=== PATIENT | female | born 1930 | race Caucasian/White ===

== ENCOUNTER 2017-05-15 01:16 | Inpatient (IN) | payer MEDICARE ==
[2017-05-15] MEDS ORDERED: Aspirin 300 MG Suppository ONE (01:19)
[2017-05-15] MEDS ORDERED: Aggrastat 12.5 MG/250 ML 250 ML ONE (02:00)
[2017-05-15] MEDS ORDERED: Heparin 10,000 UNITS/1 ML VIAL ONE ×2 (02:00→02:20)
[2017-05-15] MEDS ORDERED: Nitroglycerin 100MG/250ML BOT 250 ML ONE (02:20)
[2017-05-15 02:30] LABS: INR-International Normal Ratio 1.1; PTT 33.1 SEC (22.9-36.1); Prothrombin Time 14.4 SEC (12.0-14.7)
[2017-05-15 02:41] LABS: ALT (SGPT) 130 U/L (8-55); AST (SGOT) 211 U/L (5-34); Alkaline Phosphatase 108 U/L (40-150); Anion Gap 26 mmol/L (10-20); BUN (Urea Nitrogen) 24 mg/dL (9.8-20.1); Bilirubin, Total 0.2 mg/dL (0.2-1.2); Calc. Creatinine Clearance 0 mL/min (70-130); Calcium 8.2 mg/dL (7.8-10.44); Carbon Dioxide 12 mmol/L (23-31); Chloride 107 mmol/L (98-107); Estimated GFR-MDRD 34; Globulin 2.8 g/dL (2.4-3.5); Glucose 389 mg/dL (83-110); Potassium 4.2 mmol/L (3.5-5.1); Protein, Total 5.8 g/dL (6.0-8.3); Sodium 141 mmol/L (136-145)
[2017-05-15 02:42] LABS: CKMB 3.4 ng/mL (0-6.6); Troponin I 0.052 ng/mL (< 0.028)
[2017-05-15] MEDS ORDERED: Lidocaine 1% (PF) 30 ML VIAL ONE (02:46)
[2017-05-15 03:06] LABS: Band 1 % (5-11); Eosinophils 3 % (0-10); Hemoglobin 12.9 g/dL (12.0-16.0); Lymphocytes 42 % (21-51); MDiff Complete? YES; Mean Corpuscular Hemoglobin 29.6 pg (27.0-31.0); Mean Corpuscular Volume 92.5 fl (81.0-99.0); Mean Platelet Volume 7.2 fL (7.4-10.4); Metamyelocyte 4 % (0-0); Monocytes 5 % (0-10); Neutrophil 45 % (42-75); PLT Morphology Comment Appears Adequate; Platelet Count 256 thou/uL (130-400); RBC Distribution Width 12.8 % (11.5-14.5); RBC Morphology Normal; Red Blood Cell (RBC) Count 4.34 mill/uL (4.20-5.40)
[2017-05-15] MEDS ORDERED: TICAGRELOR 90 MG TABLET PO SCH ×2 (03:45→06:00)
[2017-05-15 03:51] LABS: Actual Bicarbonate (HCO3a) 20.9 mEq/L (22-26); Base Excess (BEa) -4.8 mEq/L (0 (+/-) 2.5); CO2 Tension 41.1 mmHg (35.0-45.0); O2 Tension (PaO2) 108.2 mmHg (80.0-100.0); pH, Arterial 7.32 (7.35-7.45)
[2017-05-15 03:52] LABS: Calcium, Ionized 1.1 mmol/L (1.12-1.30); Hematocrit-ABG 34.2 % (36.0-47.0); Hemoglobin (Hb) 11.4 g/dL (12.0-16.0); Puncture Site LINE
[2017-05-15 03:53] LABS: ALV-art Gradient 548.425 (0-20)
[2017-05-15] MEDS ORDERED: Propofol 1,000 MG/100 ML VIAL IV ONE (04:00)
[2017-05-15] MEDS ORDERED: Fentanyl 100 MCG/2 ML VIAL SLOW IVP PRN (04:34)
[2017-05-15] MEDS ORDERED: Propofol 1,000 MG/100 ML VIAL IV PRN (04:35)
[2017-05-15] MEDS ORDERED: DISCONTINUE PREVIOUS NARCOTIC PAIN MEDICATIONS AND BENZODIAZEPINES FS SCH (04:35)
[2017-05-15] MEDS ORDERED: Dextrose 5% in Water 1,000 ML IV PRN (04:35)
[2017-05-15] MEDS ORDERED: Lorazepam 2 MG/ML VIAL SLOW IVP PRN (04:35)
[2017-05-15] MEDS ORDERED: Dextrose 50% Abboject 50 ML SYRINGE IVP PRN (04:35)
[2017-05-15] MEDS ORDERED: fentaNYL Citrate/PF 2,000 MCG in Sodium Chloride 0.9% 60 ML IV SCH (04:35)
[2017-05-15] MEDS ORDERED: Morphine 2 MG/ML SYRINGE SLOW IVP PRN (04:35)
--- NOTE | 2017-05-15 04:49 | HP ---
REASON FOR ADMISSION: Cardiac arrest out of hospital with acute myocardial infarction. HISTORY OF PRESENT ILLNESS: Ms. Beaver is an 87-year-old woman. The patient started having chest pa in tonight. She was brought to the outpatient emergency room and as she arrived, the patient lost co nsciousness or actually just before she arrived when she was still in the vehicle. The staff at the emergency room was able to get her out of the car. The patient did not have a pulse, was unresponsiv e. CPR was started. The patient did have further CPR done at the emergency room in the outpatient emergency room, [facility]. She did require 5 amps of epinephrine, from what I am told. Ultimately, we were able to get her blood pressure and pulse back. She also was intubated and was transported here. On arrival here the patient was unresponsive, but did have palpable pulses in both feet. Decision wa s made to go to the cardiac catheterization lab. PAST MEDICAL HISTORY: No previous cardiac history. No other history available. The patient was bro ught directly from the outpatient optical laboratory mechanic. No previous cardiac history is known. MEDICATIONS: Apparently some anti-inflammatory. ALLERGIES: Allergy to CODEINE. REVIEW OF SYSTEMS: Not obtainable. The patient is intubated on the ventilator. FAMILY HISTORY: Unknown. SOCIAL HISTORY: Unknown. PHYSICAL EXAMINATION: GENERAL: This is a critically ill-appearing patient not responding. VITAL SIGNS: Blood pressure, however, was 140 systolic and the pulse is in the 80s. HEENT: Eyes; sclerae nonicteric. Mouth with endotracheal tube in place. NECK: Neck veins are somewhat distended. LUNGS: Clear anteriorly and laterally. CARDIAC: Somewhat distant, I did not hear murmur, rub or gallop. ABDOMEN: Distended, nontender. EXTREMITIES: Warm and dry. The peripheral pulses were palpable at the dorsalis pedis pulses bilater ally. LABORATORY AND X-RAY FINDINGS: EKG showed acute anterior myocardial infarction. The decision was made to proceed to the cardiac catheterization lab for emergency intervention if ind icated. The patient did suffer an out of hospital cardiac arrest with a relatively significant amoun t of time for CPR, I was told 30 minutes, but I do not have documentation of that. The decision was made to take the patient to the catheterization lab on an emergency basis. ASSESSMENT: 1. Out of hospital cardiac arrest, initially pulseless electrical activity. 2. Acute anterior myocardial infarction. 3. Status post CPR. 4. Currently unresponsive. The patient was taken to cardiac catheterization lab. She had a proximally occluded left anterior de scending artery which was successfully opened, also had a 70% right coronary lesion. Ejection fracti on 20%. PLAN: 1. Aspirin and ticagrelor in the OG tube. 2. Currently she is on Tirofiban, antiplatelet intravenously. 3. The patient is not really stable yet to begin beta blockers and JACKLYN inhibitors. We will start th at when feasible. 4. Neurologic prognosis unknown at this time, discussed with the family. Prognosis is guarded. 5. The patient also apparently has diabetes, blood glucose is 389. We will use sliding scale charo young
[2017-05-15 05:24] LABS: Band 8 % (5-11); Hemoglobin 11.8 g/dL (12.0-16.0); Lymphocytes 4 % (21-51); MDiff Complete? YES; Mean Corpuscular HGB CONC 32.2 g/dL (32.0-36.0); Mean Corpuscular Hemoglobin 29.6 pg (27.0-31.0); Mean Corpuscular Volume 91.7 fl (81.0-99.0); Monocytes 9 % (0-10); Neutrophil 79 % (42-75); PLT Morphology Comment Appears Adequate; Platelet Count 299 thou/uL (130-400); RBC Distribution Width 12.5 % (11.5-14.5); RBC Morphology Normal; Red Blood Cell (RBC) Count 4.01 mill/uL (4.20-5.40); White Blood Cell (WBC) Count 20.2 thou/uL (4.8-10.8)
[2017-05-15] MEDS: Sodium Chloride 0.9% 1,000 ML IV SCH ×2 (06:29→20:24)
[2017-05-15] MEDS ORDERED: Prevnar 13-Val Conj/PF 0.5 ML SYRINGE IM ONE (07:00)
[2017-05-15] MEDS ORDERED: Aggrastat 12.5 MG/250 ML 250 ML IVPB SCH (07:45)
[2017-05-15 08:27] LABS: Actual Bicarbonate (HCO3a) 19.8 mEq/L (22-26); Base Excess (BEa) -4.3 mEq/L (0 (+/-) 2.5); CO2 Tension 33.3 mmHg (35.0-45.0); Hematocrit-ABG 35.1 % (36.0-47.0); O2 Tension (PaO2) 103.6 mmHg (80.0-100.0); pH, Arterial 7.39 (7.35-7.45)
[2017-05-15 08:28] LABS: Hemoglobin (Hb) 11.8 g/dL (12.0-16.0); Puncture Site ART LINE
[2017-05-15 08:29] LABS: ALV-art Gradient 211.275 (0-20)
--- NOTE | 2017-05-15 09:05 | RAD ---
PORTABLE CHEST: History: Chest pain. Comparison: None. FINDINGS: Endotracheal tube is present. The tip is at the level of the abdon and should be retracted slightly for better placement. NG tube is below the hemidiaphragm. Heart size is borderline. Increased perihil ar markings asymmetrically involve the right hilar region, still this is most likely on the basis of pulmonary edema and less likely an infiltrative process. IMPRESSION: 1. Endotracheal tube. The tip of the tube is at level of the abdon and should be retracted slightly for more optimal placement. 2. Increased asymmetric perihilar markings in the right perihilar region. I would still favor that th is represents an asymmetric edema pattern. POS: OFF
[2017-05-15 09:48] LABS: Hemoglobin 11.9 g/dL (12.0-16.0); Mean Corpuscular HGB CONC 32.2 g/dL (32.0-36.0); Mean Corpuscular Hemoglobin 29.4 pg (27.0-31.0); Mean Corpuscular Volume 91.4 fl (81.0-99.0); Platelet Count 322 thou/uL (130-400); RBC Distribution Width 12.5 % (11.5-14.5); Red Blood Cell (RBC) Count 4.05 mill/uL (4.20-5.40); White Blood Cell (WBC) Count 28.8 thou/uL (4.8-10.8)
--- NOTE | 2017-05-15 09:56 | PRG ---
DATE OF SERVICE: 05/15/2017 Ms. Beaver's blood pressure is 150/60, her pulse is in the 80s. However, the patient is not responsiv e currently, appears to have likely suffered a significant brain injury due to hypoxemia. The tropon in level was only 1.7 and hemodynamically she is doing well. Unfortunately, she probably has suffere d hypoxic brain injury related to her cardiac arrest. The patient had severe oozing and bleeding muc h of the night, but has finally settled down off of the [place]gr[place]. Prognosis is likely poor in this unfortunate patient. We will discuss with family.
[2017-05-15 10:13] LABS: Troponin I 5.354 ng/mL (< 0.028)
[2017-05-15] MEDS ORDERED: Carvedilol 3.125 MG TAB PO SCH ×2 (10:15→17:00)
[2017-05-15] MEDS ORDERED: Furosemide 20 MG/2 ML VIAL SLOW IVP SCH (10:15)
--- NOTE | 2017-05-15 10:30 | CON ---
DATE OF CONSULTATION: 05/15/2017 SERVICE: Pulmonary Medicine. REASON FOR CONSULTATION: Respiratory failure. HISTORY OF PRESENT ILLNESS: The patient is an 87-year-old white female. Apparently, she was in her usual state of health when she had onset of chest discomfort. She went obtunded for a period of over 2 minutes. Her airway was secured. She was brought to the emergency department. She underwent rou ghly 20-30 minutes of chest compressions and ultimately return of circulation was established. She w as brought to the lab engineer and an acute LAD lesion was identified. This clot was suctioned and a john nt was placed. Since then, she has been hemodynamically stable and requiring minimal oxygen support. Unfortunately, she remains encephalopathic. Otherwise, there has been no interval change to her co ndition. There were no significant events overnight after these things transpired. PAST MEDICAL HISTORY: Osteoarthritis. Otherwise, past medical history is unknown. PAST SURGICAL HISTORY: Unknown. FAMILY HISTORY: Unknown. SOCIAL HISTORY: Unknown. ALLERGIES: The patient is allergic to CODEINE listed in our medical record. MEDICATIONS: Unknown. REVIEW OF SYSTEMS: This cannot be obtained as the patient is currently obtunded. PHYSICAL EXAMINATION: VITAL SIGNS: Afebrile, pulse 111, blood pressure 149/67, respirations 23, saturation 96% on 27% FiO2 and a PEEP of 5. GENERAL: Patient is intubated. She is on no sedating medications, but remains encephalopathic. HEENT: Normocephalic, atraumatic. Sclerae are white, conjunctivae pink. Oral mucosa is moist and w ithout lesion. LUNGS: Decent air entry. Inspiratory and expiratory wheezing. Large airway wheezing and rhonchi ar e present. No crackles are appreciated. HEART: Tachycardic. Regular. ABDOMEN: Soft, nontender, nondistended. Bowel sounds are positive. MUSCULOSKELETAL: No cyanosis or clubbing. There is no pitting in the bilateral lower extremities. NEUROLOGIC: Grossly nonfocal. LABORATORY DATA: WBC 28.8, hemoglobin 11.9, and platelets 322,000. INR 1.1. A pH 7.39, pCO2 33, pO 2 103. Creatinine 1.48. Baseline unknown. Bicarbonate 12, anion gap 26. Basic metabolic profile o therwise unremarkable. AST and ALT are 211 and 130, respectively. Troponin is up trended to 1.7. G lucose 209. WENDY is negative. Rheumatoid factor is only positive in a 1:1 titer. IMAGING: Chest x-ray demonstrates endotracheal tube with tube at level of the abdon. Asymmetric pe rihilar markings are present. ASSESSMENT: 1. ST elevation myocardial infarction. 2. Acute hypoxic respiratory failure. 3. Pulseless electrical activity arrest for 30 minutes duration, status post return of spontaneous c irculation. 4. Anoxic brain injury, suspected. PLAN: We will support the patient over the next 48 hours. It is my fear that she suffered a severe anoxic brain injury from which I am not certain if she can recover. We will provide her with support on mechanical ventilation. We will add some nebulized medications and empiric antibiotics as she wa s down for protracted course. CRITICAL CARE TIME: 30 minutes.
[2017-05-15 10:35] LABS: Band 23 % (5-11); Lymphocytes 4 % (21-51); MDiff Complete? YES; Monocytes 2 % (0-10); Neutrophil 70 % (42-75); RBC Morphology Normal; Reactive Lymphocytes 1 % (0-10)
[2017-05-15] MEDS ORDERED: Enalaprilat Dihydrate 1.25 MG/ML VIAL SLOW IVP SCH (12:00)
[2017-05-15] MEDS ORDERED: Iopamidol 370 76% 50 ML VIAL FS ONE (13:00)
[2017-05-15] MEDS ORDERED: Iopamidol 370 76% 100 ML VIAL ONE (13:00)
[2017-05-15] MEDS ORDERED: Carvedilol 6.25 MG TAB PO SCH (16:00)
[2017-05-15] MEDS: Enalaprilat Dihydrate 1.25 MG/ML VIAL SLOW IVP SCH ×2 (17:08→23:13)
[2017-05-15] MEDS ORDERED: Fentanyl 20 MCG/ML 250 ML IVPB SCH (18:05)
--- NOTE | 2017-05-15 19:02 | EKG ---
Test Reason : Blood Pressure : / mmHG Vent. Rate : 103 BPM Atrial Rate : 103 BPM P-R Int : 134 ms QRS Dur : 084 ms QT Int : 380 ms P-R-T Axes : 071 -22 072 degrees QTc Int : 497 ms Sinus tachycardia Inferior infarct (cited on or before 15-MAY-2017) Anteroseptal infarct (cited on or before 15-MAY-2017) T wave abnormality, consider lateral ischemia Abnormal ECG When compared with ECG of 15-MAY-2017 01:22, (Unconfirmed) Fusion complexes are no longer Present Serial changes of evolving Anteroseptal infarct Present Confirmed by DR. Fritz BERNARD ([id number]) on 05/15/2017 7:02:17 PM Referred By: MAO Confirmed By:DR. Fritz BERNARD
[2017-05-15] MEDS: Atorvastatin Calcium 40 MG TAB PO SCH (20:24)
[2017-05-15] MEDS: Amoxicillin/Potassium Clav 500 MG TAB PO SCH (20:24)
[2017-05-16 04:20] LABS: #Lymphocytes 1.8 thou/uL (1.20-3.40); #Monocytes 1.9 thou/uL (0.11-0.59); #Neutrophils 16.3 thou/uL (1.40-6.50); %Eosinophils 0.1 % (0.0-10.0); %Lymphocytes 8.9 % (21.0-51.0); %Monocytes 9.4 % (0.0-10.0); %Neutrophils 81.6 % (42.0-75.0); Hemoglobin 10.3 g/dL (12.0-16.0); Mean Corpuscular HGB CONC 33.2 g/dL (32.0-36.0); Mean Corpuscular Hemoglobin 29.5 pg (27.0-31.0); Mean Corpuscular Volume 88.8 fl (81.0-99.0); Platelet Count 252 thou/uL (130-400); RBC Distribution Width 12.6 % (11.5-14.5); Red Blood Cell (RBC) Count 3.49 mill/uL (4.20-5.40)
[2017-05-16 04:45] LABS: ALT (SGPT) 108 U/L (8-55); AST (SGOT) 106 U/L (5-34); Albumin 2.9 g/dL (3.4-4.8); Alkaline Phosphatase 89 U/L (40-150); Anion Gap 14 mmol/L (10-20); BUN (Urea Nitrogen) 27 mg/dL (9.8-20.1); Bilirubin, Total 0.5 mg/dL (0.2-1.2); Calc. Creatinine Clearance 58 mL/min (70-130); Calcium 8.3 mg/dL (7.8-10.44); Carbon Dioxide 23 mmol/L (23-31); Chloride 111 mmol/L (98-107); Estimated GFR-MDRD 64; Globulin 2.3 g/dL (2.4-3.5); Glucose 156 mg/dL (83-110); Potassium 3.6 mmol/L (3.5-5.1); Protein, Total 5.2 g/dL (6.0-8.3); Sodium 144 mmol/L (136-145)
[2017-05-16] MEDS: Enalaprilat Dihydrate 1.25 MG/ML VIAL SLOW IVP SCH ×4 (05:47→23:48)
[2017-05-16] MEDS ORDERED: TICAGRELOR 90 MG TABLET PO SCH (09:00)
[2017-05-16] MEDS: Carvedilol 6.25 MG TAB PO SCH ×2 (09:07→18:18)
[2017-05-16] MEDS: Sodium Chloride 0.9% 1,000 ML IV SCH ×2 (09:08→09:30)
[2017-05-16] MEDS: Famotidine/PF 20 mg/2ml Vial SLOW IVP SCH ×2 (09:08→21:26)
[2017-05-16] MEDS: Amoxicillin/Potassium Clav 500 MG TAB PO SCH ×2 (09:08→21:26)
--- NOTE | 2017-05-16 09:14 | PRG ---
DATE OF SERVICE: 05/16/2017 SUBJECTIVE: Ms. Beaver has some spontaneous movement, but otherwise does not follow commands. She is breathing over the ventilator. PHYSICAL EXAMINATION: VITAL SIGNS: Blood pressure is variable, most recently 106/70, pulse is 106, sinus. LUNGS: Clear. CARDIAC: Normal S1 and S2. ABDOMEN: Soft, nontender. EXTREMITIES: There is no edema. PERTINENT LABORATORY DATA: Hemoglobin is 10.3, creatinine 0.8. There is some dark brown in emesis f rom the NG tube. ASSESSMENT: 1. Status post myocardial infarction with a relatively small troponin rise. Emergency intervention done. 2. Hypoxic brain injury. 3. Respiratory failure. PLAN: 1. Continue supportive care. 2. Add Pepcid. 3. Reduce Vasotec, blood pressure is lower. 4. See if potentially she could be weaned from the ventilator.
--- NOTE | 2017-05-16 11:29 | RAD ---
ONE VIEW CHEST: Comparison: 05-15-17 History: Status post AK. FINDINGS: Redemonstration of the endotracheal tube just proximal to the abdon. Stable nasogastric tube. Persis tent opacification left hemithorax. Improved aeration of the right lung. No pneumothorax. IMPRESSION: 1. ET tube as above. Consider retraction of the tube approximately 2 cm. 2. Persistent opacification in the left hemithorax. Code T POS: [facility]
[2017-05-16] MEDS: Insulin Regular 300 UNITS/3 ML VIAL SC PRN ×2 (12:32→18:25)
--- NOTE | 2017-05-16 14:36 | PRG ---
DATE OF SERVICE: 05/16/2017 SERVICE: Pulmonary Medicine. INTERVAL HISTORY: The patient is doing poorly from a neurologic standpoint. That being said, she wright d no cardiovascular or respiratory events overnight. She cannot provide additional elements of the h istory. PHYSICAL EXAMINATION: VITAL SIGNS: Afebrile, pulse 96, blood pressure 90/50, respirations 17, saturation 95% on 27% FiO2 a nd a PEEP of 5. GENERAL: Patient is intubated. She is on minimal sedation to prevent coughing and gagging. HEENT: Normocephalic and atraumatic. Sclerae are white, conjunctivae pink. Oral and nasal mucosa i s moist without lesions. LUNGS: Decent air entry. There is no prolonged expiratory phase, wheezing, rhonchi or crackles. HEART: Normal rate and regular. ABDOMEN: Soft, nontender and nondistended. Bowel sounds are positive. MUSCULOSKELETAL: No cyanosis or clubbing. No pitting in the bilateral lower extremities. NEUROLOGIC: Pupils are both equal, round and reactive at this point. The left pupil is now working, although a little sluggish. She demonstrates posturing with noxious stimuli to the bilateral upper extremities. Bilateral lower extremities do not withdraw. The movement that we are witnessing is ac tually a crossed extensor reflex. She is coughing and overbreathing the ventilator. She does have a gag. Deep suctioning elicits cough. LABORATORY DATA: WBC 20.0 and down trending, hemoglobin 10.3 and platelets 252,000. Basic metabolic profile is completely unremarkable. Creatinine is resolved to 0.84. AST and ALT are both down tren ding. Troponin 5.35. IMAGING DATA: Chest x-ray demonstrates an endotracheal tube 1 cm above the abdon. There is opacifi cation of the left hemithorax. ASSESSMENT: 1. ST elevation myocardial infarction. 2. Acute hypoxic respiratory failure. 3. Anoxic brain injury, suspected. 4. Pulseless electrical activity arrest, out of hospital of 30 minutes duration, status post return of spontaneous circulation. PLAN: We will continue to support the patient over the next 24 hours. She has not made a very signi ficant recovery of neurologic function in the last 24 hours. That being said, we will continue to reagan pport for 1-2 additional days because clearly the patient is not brain . The patient's daughter suggested to me that she probably would not want to continue to exist in a semi-permanent vegetative state. If she fails to make a significant neurologic improvement over the next 1-2 days, we will lik ramiro be transitioning over to comfort care. CRITICAL CARE TIME: 30 minutes.
[2017-05-16] MEDS: Sodium Chloride 0.45% 1,000 ML IV SCH (14:47)
--- NOTE | 2017-05-16 16:37 | EKG ---
Test Reason : Blood Pressure : / mmHG Vent. Rate : 110 BPM Atrial Rate : 110 BPM P-R Int : 000 ms QRS Dur : 080 ms QT Int : 312 ms P-R-T Axes : 044 -17 090 degrees QTc Int : 422 ms Sinus tachycardia with Premature atrial complexes Minimal voltage criteria for LVH, may be normal variant Inferior infarct (cited on or before 15-MAY-2017) Cannot rule out Anterior infarct (cited on or before 15-MAY-2017) Abnormal ECG When compared with ECG of 15-MAY-2017 07:35, Premature atrial complexes are now Present T wave inversion no longer evident in Anterior leads Confirmed by DR. Fritz BERNARD (3) on 05/16/2017 4:36:51 PM Referred By: MAO Confirmed By:DR. Fritz BERNARD
[2017-05-16] MEDS ORDERED: Acetaminophen 325 MG TAB PO PRN (18:48)
[2017-05-16] MEDS ORDERED: Acetaminophen 650 MG Suppository PR PRN (18:48)
[2017-05-16] MEDS ORDERED: Acetaminophen 650 MG/20.3 ML UDCUP PO PRN (18:49)
[2017-05-16] MEDS: TICAGRELOR 90 MG TABLET PO SCH (21:26)
[2017-05-16] MEDS: Atorvastatin Calcium 40 MG TAB PO SCH (21:26)
[2017-05-17] MEDS: Insulin Regular 300 UNITS/3 ML VIAL SC PRN ×2 (00:35→13:46)
[2017-05-17 05:46] LABS: #Basophils 0.1 thou/uL (0.0-0.2); #Lymphocytes 1.1 thou/uL (1.20-3.40); #Monocytes 1.5 thou/uL (0.11-0.59); #Neutrophils 14.5 thou/uL (1.40-6.50); %Basophils 0.4 % (0.0-1.0); %Eosinophils 0.2 % (0.0-10.0); %Lymphocytes 6.2 % (21.0-51.0); %Monocytes 8.9 % (0.0-10.0); %Neutrophils 84.3 % (42.0-75.0); Hemoglobin 8.6 g/dL (12.0-16.0); Mean Corpuscular HGB CONC 33.6 g/dL (32.0-36.0); Mean Corpuscular Hemoglobin 29.9 pg (27.0-31.0); Mean Platelet Volume 7.4 fL (7.4-10.4); Platelet Count 205 thou/uL (130-400); RBC Distribution Width 12.7 % (11.5-14.5); Red Blood Cell (RBC) Count 2.86 mill/uL (4.20-5.40); White Blood Cell (WBC) Count 17.2 thou/uL (4.8-10.8)
[2017-05-17 05:54] LABS: Anion Gap 9 mmol/L (10-20); BUN (Urea Nitrogen) 30 mg/dL (9.8-20.1); Calc. Creatinine Clearance 66 mL/min (70-130); Calcium 7.8 mg/dL (7.8-10.44); Carbon Dioxide 22 mmol/L (23-31); Chloride 112 mmol/L (98-107); Estimated GFR-MDRD 75; Glucose 129 mg/dL (83-110); Potassium 3.3 mmol/L (3.5-5.1); Sodium 140 mmol/L (136-145)
[2017-05-17 06:01] LABS: Phosphorus 1.7 mg/dL (2.3-4.7)
[2017-05-17] MEDS: Enalaprilat Dihydrate 1.25 MG/ML VIAL SLOW IVP SCH ×4 (06:07→23:25)
[2017-05-17] MEDS: Carvedilol 6.25 MG TAB PO SCH ×2 (08:34→17:18)
[2017-05-17] MEDS: Amoxicillin/Potassium Clav 500 MG TAB PO SCH ×2 (08:35→20:34)
[2017-05-17] MEDS: Famotidine/PF 20 mg/2ml Vial SLOW IVP SCH ×2 (08:35→20:34)
[2017-05-17] MEDS: TICAGRELOR 90 MG TABLET PO SCH ×2 (08:36→20:34)
[2017-05-17] MEDS ORDERED: Potassium Chloride 40 MEQ in Premix Bag 1 BAG IVPB SCH (09:30)
[2017-05-17] MEDS ORDERED: Potassium Phosphate 30 MMOL in Sodium Chloride 0.9% 250 ML 250 ML IVPB SCH (09:45)
--- NOTE | 2017-05-17 09:55 | PRG ---
DATE OF SERVICE: 05/17/2017 Ms. Beaver remains unresponsive on the ventilator. She has also developed fever. PHYSICAL EXAMINATION: VITAL SIGNS: Blood pressure 150/80, pulse 110, sinus. LUNGS: Clear anterolaterally. CARDIAC: Normal S1, normal S2. ABDOMEN: Soft, nontender. EXTREMITIES: Warm and dry. PERTINENT LABORATORY: Her hemoglobin has dropped to 8.6. WBC 17.2. There is some NG aspirate which is coffee-ground. Potassium this morning is 3.3. ASSESSMENT: 1. Status post cardiac arrest. 2. Acute anterior myocardial infarction. 3. Hypoxic brain injury. PLAN: 1. The family wishes to have no chest compressions or cardioversion. 2. Discuss extubation this morning.
[2017-05-17] MEDS: Sodium Chloride 0.45% 1,000 ML IV SCH (12:20)
--- NOTE | 2017-05-17 15:08 | PRG ---
DATE OF SERVICE: 05/17/2017 SERVICE: Pulmonary Medicine. INTERVAL HISTORY: The patient is doing fine from a cardiovascular and respiratory standpoint. She had several fevers overnight. Her hemoglobin dropped off a little bit. Her white blood cell count is trending downward. Otherwise, there has been no interval change to her neurologic condition. If anything, things have gotten slightly worse. She has been on the sedation holiday for an extended period of time. She cannot provide any additional elements of the history. PHYSICAL EXAMINATION: VITAL SIGNS: Currently afebrile but T-max overnight was 101.8. Pulse 97, blood pressure 136/66, respirations 21, saturation 97% on 27% FiO2. PEEP of 5. GENERAL: The patient is intubated. She is under sedation, but remains in a coma. HEENT: Normocephalic, atraumatic. Sclerae are white, conjunctivae pink. Oral and nasal mucosa is moist without lesions. LUNGS: Excellent air entry. There is no prolonged expiratory phase. No wheezing is present. HEART: Normal rate, regular. ABDOMEN: Soft, nontender, nondistended. Bowel sounds are positive. MUSCULOSKELETAL: No cyanosis or clubbing. There is no pitting in the bilateral lower extremities. NEUROLOGIC: Grossly nonfocal. With deep suctioning, she has posturing present. She has internal rotation of both arms as well as extension at the elbows. Additionally, she has extension of the knees and internally rotates her toes. Today, she does not withdraw demonstrate a crossed extensor reflex of the bilateral lower extremities. She demonstrates a very minimal posturing with noxious stimuli in the bilateral upper extremities. She continues to over breathe the ventilator, cough with deep suctioning. Pupils are equal and sluggishly reactive. LABORATORY DATA: WBC 17.2, hemoglobin 8.6 and down trending, platelets 205, 000. INR 1.1. BUN 30, anion gap 9, bicarbonate 22, potassium 3.3. Phosphorus 1.7. Basic metabolic profile is otherwise unremarkable. ASSESSMENT: 1. ST-elevation myocardial infarction. 2. Acute hypoxic respiratory failure, improving. 3. Anoxic brain injury. 4. Pulseless electrical activity, out of hospital with 30 minutes of downtime status post return of spontaneous circulation. DISCUSSION AND PLAN: I had a conversation with the patient's family today. Her daughter has suggested that she would not want to live in a permanently debilitated state. The fact that she has not made any significant neurologic headway over the last 24 hours (if anything, she is moving in the wrong direction), the likelihood of a meaningful recovery is extraordinarily low. As such, they would like for us to transition over to comfort care. I told them this could occur today or tomorrow. Pulmonary Critical Care will continue to follow if she remains in house. CRITICAL CARE TIME: 30 minutes. TIMOTHY
[2017-05-17 15:20] VITALS: BMI 29.0
[2017-05-17] MEDS: Atorvastatin Calcium 40 MG TAB PO SCH (20:34)
[2017-05-18] MEDS: Sodium Chloride 0.45% 1,000 ML IV SCH ×2 (00:11→12:00)
[2017-05-18] MEDS: Enalaprilat Dihydrate 1.25 MG/ML VIAL SLOW IVP SCH ×3 (05:05→22:02)
[2017-05-18 10:56] VITALS: BP 58/33
[2017-05-18] MEDS: Carvedilol 6.25 MG TAB PO SCH ×2 (12:00→22:02)
--- NOTE | 2017-05-18 13:22 | PRG ---
DATE OF SERVICE: 05/18/2017 SERVICE: Pulmonary Medicine. INTERVAL HISTORY: Yesterday, the patient seemed to complete her brainstem injury. She abruptly stop ped breathing over the ventilator, and dropped her pressures. Her pupils became fixed and dilated. She became completely nonresponsive. As such, the family was notified. The who was recently diagnosed with Alzheimer's disease became a little bit confused and agitated. He subsequently went home and then realized that he had acted perhaps inappropriately based on what the family is telling us. Either way, they are ready for transition over to comfort care once a couple of family members a rrive. The patient cannot provide any additional elements of the history and otherwise, there were n o events. PHYSICAL EXAMINATION: VITAL SIGNS: Afebrile currently. Her T-max overnight was 102 degrees Fahrenheit. Pulse 60, blood p ressure 59/34, respirations 12, saturation 97% on 23% FiO2. HEENT: Normocephalic, atraumatic. Sclerae are white, conjunctivae pink. Oral and nasal mucosa is m oist without lesions. LUNGS: Decent air entry with no prolonged expiratory phase. HEART: Normal rate, regular. ABDOMEN: Soft, nontender, nondistended. Bowel sounds are positive. MUSCULOSKELETAL: No cyanosis or clubbing. There is no pitting in the bilateral lower extremities. NEUROLOGIC: Pupils are fixed and dilated. She is not over breathing the ventilator. She has no cou gh or gag. Doll's eyes are abnormal. She does not withdraw from noxious stimuli in the bilateral up per or lower extremities. Pulses are equal and present throughout. ASSESSMENT: 1. ST elevation myocardial infarction. 2. Acute hypoxic respiratory failure, improving. 3. Anoxic brain injury. 4. Pulseless electrical activity, out of hospital with 30 minutes of downtime status post return of spontaneous circulation. 5. Brain . DISCUSSION AND PLAN: The patient is going to be compassionately extubated. The family has requested that we wait for a couple of family members to arrive, which I think is perfectly reasonable Pulmon [facility] Critical Care will continue to follow, but my suspicion is, the patient will have a rapid passing once the endotracheal tube is removed. The family is aware of the updated situation and has express ed appreciation for the care that we provided. Critical care time: 30 minutes.
[2017-05-18] MEDS: Famotidine/PF 20 mg/2ml Vial SLOW IVP SCH (13:42)
[2017-05-18] MEDS: Amoxicillin/Potassium Clav 500 MG TAB PO SCH (13:42)
[2017-05-18] MEDS: TICAGRELOR 90 MG TABLET PO SCH (13:43)
[2017-05-18 21:58] VITALS: TEMP 95
--- NOTE | 2017-05-19 15:30 | EKG ---
Test Reason : STAT Blood Pressure : / mmHG Vent. Rate : 124 BPM Atrial Rate : 124 BPM P-R Int : 140 ms QRS Dur : 076 ms QT Int : 294 ms P-R-T Axes : 092 -10 108 degrees QTc Int : 422 ms Sinus tachycardia with occasional Premature ventricular complexes Inferior infarct (cited on or before 15-MAY-2017) Anterolateral infarct (cited on or before 15-MAY-2017) Nonspecific ST-T changes Abnormal ECG When compared with ECG of 16-MAY-2017 07:06, Premature ventricular complexes are now Present Premature atrial complexes are no longer Present Confirmed by DR. Fritz BERNARD (3) on 05/19/2017 3:29:45 PM Referred By: MAO Confirmed By:DR. Fritz BERNARD
--- NOTE | 2017-05-20 11:43 | DS ---
DATE OF DICTATION: 05/27/2017 FINAL DIAGNOSES: 1. Out of hospital cardiac arrest. 2. Acute myocardial infarction. 3. Pulseless electrical activity. 4. Hypoxic brain injury. HOSPITAL COURSE: Ms. Beaver was an 87-year-old woman, who was having chest pain and was being brought to an emergency room by her family. On the way, the patient became unresponsive. The patient was taken into a freestanding emergency room. Initially, she did not have a blood pressure or pulse, even though she did have a heart rhythm, (pulseless electrical activity). She is able to be resuscitated and transferred here after being intubated and resuscitated. The initial history that was given to me was that she had been unresponsive only a very brief time, but in retrospect, it looked like she had probably been unresponsive for some time prior to arrival to the freestanding catheterization lab and then had a prolonged resuscitation in the emergency room. The patient arrived here after midnight. At that time, the patient was having a myocardial infarction. It was unclear what the neurologic prognosis would be. Therefore, she was taken on an emergency basis to cardiac catheterization lab, this was thought to be her best chance of surviving the myocardial infarction. The patient was found to have coronary disease and had successful opening of her proximal LAD. She had a severe lesion of the right coronary as well, collateralizing some of the LAD. Therefore, it may actually have been a chronic total occlusion of the LAD with ischemia due to the right coronary stenosis, but that was not really clear initially and the patient did well from a cardiac standpoint after we opened and stented the LAD with only a very small troponin rise. Hemodynamically, she did well following that, but unfortunately suffered a severe hypoxic brain injury. She was initially unstable hemodynamically, but improved later, but as mentioned , unfortunately, her brain injury limited her prognosis. After several days of observation, the patient was not recovering, and clearly had a severe hypoxic brain injury. Dr. Szymanski spoke with the family and I spoke with the family, they wished to withdraw care and the patient here in the hospital. Final cause of was myocardial infarction and subsequent pulseless electrical activity, and the next diagnosis, hypoxic brain injury. TIMOTHY
== END 2017-05-18 19:42 | disposition expired | DRG 246 ==
LOC: ERS 01:16 → CCU 01:28 → CCL 01:34 → CCU 01:57
PROVIDERS: ADMIT Internal Medicine Cardiovascular Disease; ATTEND Internal Medicine Cardiovascular Disease
PROC: 4A023N7 Measurement of Cardiac Sampling and Pressure, Left Heart, Percutaneous Approach (ICD-10-PCS; principal; 2017-05-15)
PROC: 027034Z Dilation of Coronary Artery, One Artery with Drug-eluting Intraluminal Device, Percutaneous Approach (ICD-10-PCS; 2017-05-15)
PROC: 5A1945Z Respiratory Ventilation, 24-96 Consecutive Hours (ICD-10-PCS; 2017-05-15)
PROC: 02C03ZZ Extirpation of Matter from Coronary Artery, One Artery, Percutaneous Approach (ICD-10-PCS; 2017-05-15)
PROC: B2111ZZ Fluoroscopy of Multiple Coronary Arteries using Low Osmolar Contrast (ICD-10-PCS; 2017-05-15)
PROC: B2151ZZ Fluoroscopy of Left Heart using Low Osmolar Contrast (ICD-10-PCS; 2017-05-15)
DX: I21.09 ST elevation (STEMI) myocardial infarction involving other coronary artery of anterior wall (principal); J96.01 Acute respiratory failure with hypoxia; I46.2 Cardiac arrest due to underlying cardiac condition; G93.1 Anoxic brain damage, not elsewhere classified; I25.10 Atherosclerotic heart disease of native coronary artery without angina pectoris; E11.65 Type 2 diabetes mellitus with hyperglycemia; Z51.5 Encounter for palliative care; Z88.5 Allergy status to narcotic agent
CPT/HCPCS: 36415; 36416; 71045; 76942; 80048; 80053; 82553; 82805; 83735; 84100; 84484; 85025; 85347; 85610; 85730; 92941; 93005; 93010; 93458; 94002; 94003; 94640; 99285; A4216; C1769; C1874; C1887; C9606; J1644; J1815; J1940; J2001; J2270; J2704; J3246; J7050; J7620; S0028